=== PATIENT | male | born 1990 | race Caucasian/White ===

== ENCOUNTER → 2017-07-05 | Outpatient (CLI) | payer BC ==
[~2017-07-05] MED LIST: FLONASE; NORCO 5-325 TA1 EACH PO; SINGULAIR; ULTRAM 50MG TAB50 MG PO
== END ==
LOC: M.RAD 12:41
DX: S39.92XA Unspecified injury of lower back, initial encounter (principal); X58.XXXA Exposure to other specified factors, initial encounter; Y93.89 Activity, other specified; Y92.89 Other specified places as the place of occurrence of the external cause; Y99.8 Other external cause status